=== PATIENT | male | born 1950 | race Caucasian/White ===

== ENCOUNTER 2016-09-13 18:29 | Inpatient (IN) | payer MEDICARE ==
--- NOTE | ~2016-09-13 | DS ---
Discharge Summary [facility] [address] [place]. [address] NAME: IGNACIA LOZOYA : 48 STATUS : DIS IN PAT#: [id number] AGE: 65 ADM/REG DATE : 09/13/16 MR#: [id number] REPORT SERV DATE: 09/17/16 DICTATED BY: SANJEEV RASMUSSEN DATE: 09/16/16 REPORT STATUS : Draft TRANSCRIBED BY: MODL DATE: 09/16/16 ADMISSION DATE: 09/13/2016 DISCHARGE DATE: 09/16/2016 DISCHARGE DIAGNOSES: 1. Major depressive disorder. 2. Non-anion gap metabolic acidosis, chronic. 3. Acute kidney injury, now resolved. 4. Chronic kidney disease stage 3, currently stable. 5. Uncontrolled hypertension, stable with restarting of Tenoretic. 6. Chronic anemia, stable. 7. Right hydronephrosis. 8. History of urothelial cancer status post prostatectomy with cystectomy and creation of a neobladder by Dr. Irvin Flower. 9. Hyperlipidemia. 10.Coronary artery disease with prior coronary artery bypass graft. CONSULTANTS DURING THIS HOSPITALIZATION: 1. Irvin Flower M.D. of Urology. 2. Todd Zapata M.D. of Hematology/Oncology. 3. Rock Barrios M.D. of Psychiatry. INVASIVE PROCEDURES DONE DURING THIS HOSPITALIZATION: None. BRIEF HISTORY OF PRESENT ILLNESS: The patient is a 65-year-old white male, who presented to [facility]'s Emergency Room with complaints of nausea, dehydration, weakness, and failure to thrive, so he was admitted. For detailed history and physical exam, please see note dictated by Dr. Larry Angel on 09/13/2016. HOSPITAL COURSE: After being admitted to the hospital, this patient initially was thought to have acute kidney injury. This patient was given aggressive IV fluids. There was no evidence of any infection. His creatinine returned back to baseline around 1.8. Dr. Zapata saw the patient in consultation and he had thought that he had stage III urothelial cancer that has been in remission due from his surgery, and he continues to do well from that. There were no other issues. All infections were ruled out as well. Dr. Flower saw the patient in consultation because of right hydronephrosis that had been chronic and Dr. Flower did not think that we need to proceed with placing a stent at this time and putting the patient through anesthesia. This patient was more thought to have severe depression based on his symptoms, so Dr. Barrios saw the patient in consultation and placed him on Remeron SolTab and Ativan, and the patient has made more improvements. I had a long discussion with the daughter regarding his depression and treatment options and at this time we have recommended that he be evaluated at [facility] which the daughter will take him there today for evaluation. I have personally called [facility] and made that appointment at 4 o'clock today. I also discussed this with the patient and he understands and agrees. Currently, he remains otherwise stable and is being discharged in stable condition. Discharge Summary [address] [place]. [address] NAME: IGNACIA LOZOYA : 48 STATUS : DIS IN PAT#: [id number] AGE: 65 ADM/REG DATE : 09/13/16 MR#: [id number] REPORT SERV DATE: 09/17/16 DICTATED BY: SANJEEV RASMUSSEN DATE: 09/16/16 REPORT STATUS : Draft TRANSCRIBED BY: CHRISTINE DATE: 09/16/16 DISCHARGE DISPOSITION: Home. DISCHARGE ACTIVITY: As tolerated. DISCHARGE DIET: Low sodium diet. DISCHARGE MEDICATIONS: 1. Tenoretic 100/25 mg half a tablet once daily. 2. Marinol 2.5 mg three times daily. 3. Lexapro 10 mg daily. 4. Probiotics as needed. 5. Potassium 20 mEq twice daily. 6. Remeron SolTab 30 mg once at bedtime. 7. Ativan half a tablet to one tablet every evening p.r.n. for insomnia. DISCHARGE FOLLOWUP: 1. With Dr. Todd Zapata as previously scheduled. 2. With Dr. Flower as previously scheduled. 3. With Dr. Juan Puri as previously scheduled. More than 30 minutes spent planning this patient's discharge, reconciling medications, discussing hospital care, and followup with the patient, discussing care with the daughter over the phone, and documenting this discharge. LAURENT/CHRISTINE Sanjeev Rasmussen M.D. / [id number] CC: Osman Nj M.D. Jeffrey K. Mullins, MD Benjamin R Nadeau, MD
--- NOTE | ~2016-09-13 | CN ---
Consultation Report [facility] [address] [place]. [address] NAME: IGNACIA LOZOYA : 48 STATUS : ADM Jesse PAT#: [id number] AGE: 65 ADM/REG DATE : 09/13/16 MR#: [id number] REPORT SERV DATE: 09/14/16 DICTATED BY: ROCK ROGEL DATE: 09/14/16 REPORT STATUS : Draft TRANSCRIBED BY: MODL DATE: 09/14/16 PSYCHIATRIC CONSULTATION. DATE OF CONSULTATION: 09/14/2016 I have reviewed this patient's current and old medical records. I discussed his history with his daughter. HISTORY OF PRESENT ILLNESS: He was admitted with nausea, vomiting, dehydration, and weakness. He is status post a cystoprostatectomy for bladder cancer. He completed a course of chemo few weeks ago. He is now learning to cope with the dynamics of his neobladder. The nausea and vomiting have persisted since the chemo. He said he does not feel depressed, but said "I would not be surprised if I was on" in view of his overall health status. PAST PSYCHIATRIC HISTORY: About 30 years ago, he went through a similar period of nausea and vomiting after he suffered a fall through a window during a house renovation. At that time, he suffered a severe blood loss from the wound to his arm. At that time, he had an extensive GI workup, but it proved negative. He was then referred to the psychiatry section at [facility], where he was admitted and diagnosed with a "chemical imbalance." He had a good response to the psychotropic medication, which he received there and he stayed on that medication for a couple of years. He has been medication free, without a relapse, for about 25 years. Recently, Dr. Zapata had prescribed one or two different antidepressants, but he could not tolerate them because of the nausea, however, he remains willing to have another trial. 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 He said he used to suffer from pregame anxiety, which took the form of nausea and vomiting. SOCIAL HISTORY: He has been for a number of years. He has two grown daughters. He lives alone in [facility]. 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 FAMILY HISTORY: No psychiatric illness. MENTAL STATUS: He was cooperative in attitude. His overall demeanor was reserved with some reluctance to engage. His mood seemed dysphoric. His affect was appropriate. His thinking was logical. He had no delusions. He had no hallucinations. He was oriented to time, place, and person. He demonstrated good recent and remote memory. DIAGNOSIS: Depressive disorder, not otherwise specified. RECOMMENDATIONS: He agreed to having another trial of Remeron, this time using the soluble tablet form. I will follow up tomorrow. Consultation Report [address] [place]. [address] NAME: IGNACIA LOZOYA : 48 STATUS : ADM Jesse PAT#: [id number] AGE: 65 ADM/REG DATE : 09/13/16 MR#: [id number] REPORT SERV DATE: 09/14/16 DICTATED BY: ROCK ROGEL DATE: 09/14/16 REPORT STATUS : Draft TRANSCRIBED BY: CHRISTINE DATE: 09/14/16 VINCENT/CHRISTINE Rock Rogel M.D. / [id number] CC: MD Juan Cronin II, M.D.
--- NOTE | ~2016-09-13 | HP ---
History And Physical [facility] [address] [facility] [place]. [address] NAME: IGNACIA LORD : 48 STATUS : ADM Jesse PAT#: [id number] AGE: 65 ADM/REG DATE : 09/13/16 MR#: [id number] REPORT SERV DATE: 09/14/16 DICTATED BY: JUANCHO FRAUSTO DATE: 09/14/16 REPORT STATUS : Draft TRANSCRIBED BY: MODAngelica DATE: 09/14/16 DATE OF ADMISSION: 09/13/2016 POINT OF ENTRY: [facility] Emergency Department. PRIMARY ONCOLOGIST: Dr. Zapata. PRIMARY UROLOGIST: Dr. Flower. CHIEF COMPLAINT: Nausea, dehydration, and weakness. HISTORY OF PRESENT ILLNESS: Mr. Lord is a 65-year-old gentleman with a history of bladder cancer, status post recent cystoprostatectomy with ileal conduit and Neobladder creation who recently completed a course of chemotherapy about four weeks ago, who presents to the emergency department today with persistent post chemotherapy-induced nausea, vomiting, weakness, and anorexia. The patient states that he completed his chemotherapy regimen about four weeks ago. He was told by his physicians that after a few weeks, he would start to feel better; however, he states that he has not felt any better despite approximately four weeks passing. He continues to have significant nausea despite use of oral antiemetics. Does endorse some occasional vomiting, but his primary issue is anorexia. Given his anorexia, he has had decreased oral intake with resulting weight loss as well as dehydration. Dr. Zapata reportedly wanted the patient to be admitted to the hospital last for dehydration; however, the patient resisted and wanted to try some oral Marinol to see if that would help with his nausea and appetite stimulation. Unfortunately, this use of Marinol for the past two to three days has not had any improvement, and actually has made him more nauseous. The patient does endorse mild weakness. Daughter is very concerned that the patient is depressed as he seems to have lost interest in his previous hobbies, does not seem to have much energy, has a flat affect, and would like Psychiatry to evaluate the patient during this hospitalization. Initial evaluation in the emergency department notable for a creatinine of 2.10, a potassium of 3.4. Urinalysis does show some pyuria, but again, he does have a neobladder in place. Remainder of labs unremarkable. The patient denies any fevers, night sweats, chills, chest pain, palpitations, shortness of breath, cough, sputum production, abdominal pain, diarrhea, constipation, melena, hematochezia, or hemoptysis. Also denies any dysuria or change in his urinary appearance. REVIEW OF SYSTEMS: Comprehensive review of systems negative unless listed in the history present illness. PREVIOUS MEDICAL HISTORY: 1. Bladder cancer, status post cystoprostatectomy with neobladder creation. 2. Hypertension. History And Physical [address] [address] NAME: IGNACIA LORD : 48 STATUS : ADM Jesse PAT#: [id number] AGE: 65 ADM/REG DATE : 09/13/16 MR#: [id number] REPORT SERV DATE: 09/14/16 DICTATED BY: JUANCHO FRAUSTO DATE: 09/14/16 REPORT STATUS : Draft TRANSCRIBED BY: CHRISTINE DATE: 09/14/16 3. Hyperlipidemia. 4. Coronary artery disease with prior coronary artery bypass grafting. 5. Chronic kidney, stage 3, baseline creatinine highly variable, approximately 1.2 to 1.4. 6. Insomnia. 7. Depression. SURGICAL HISTORY: 1. Cystoprostatectomy with ileal conduit and neobladder creation. 2. Appendectomy. 3. Cholecystectomy. 4. TURBT x2. 5. Multiple prior cystoscopies and stent placement. 6. Back surgery. 7. CABG. ALLERGIES: HYDROCODONE, OXYCODONE, AND SULFA DRUGS. MEDICATIONS: 1. Atenolol with chlorthalidone, 1/2 tablet daily. 2. Marinol 2.5 mg t.i.d. 3. Lexapro 10 mg daily. 4. Align probiotic 1 tab daily. 5. Zofran 8 mg p.o. t.i.d. p.r.n. 6. Potassium chloride 20 mEq b.i.d. SOCIAL HISTORY: Denies any tobacco, alcohol, or illicits. FAMILY MEDICAL HISTORY: Mother, father, and siblings, all with coronary artery disease. LABS AND IMAGIN. White count is 8.9, hemoglobin is 10.2, hematocrit is 32.1, platelets 486. INR 1.2. MCV is 102.2. 2. Sodium is 143, potassium 3.4, chloride 112, carbon dioxide 20, BUN 20, creatinine 2.10, glucose is 129. Calcium is 9.3, magnesium 1.8. Protein 7.8, albumin 3.7, bilirubin is 0.3. ALT 25, AST 19, alkaline phosphatase is 127. 3. Lipase is 94. 4. Lactic acid is 1.3. 5. Troponin less than 0.02. 6. Chest x-ray per my review shows no acute cardiopulmonary abnormality. 7. Urinalysis, specific gravity is 1.009, small leukocyte esterase, 10 reds with 35 white blood cells per high field with rare bacteria. 8. EKG per my review shows normal sinus rhythm with some PACs and PVCs. Otherwise, no acute ischemia or infarction. PHYSICAL EXAMINATION: VITAL SIGNS: Temperature is 98.4 degrees Fahrenheit, pulse is 70, respirations 18, saturating 97% on room air. Blood pressure 186/99. On recheck, blood pressure is now History And Physical [address] [address] NAME: IGNACIA LORD : 48 STATUS : ADM Jesse PAT#: [id number] AGE: 65 ADM/REG DATE : 09/13/16 MR#: [id number] REPORT SERV DATE: 09/14/16 DICTATED BY: JUANCHO FRAUSTO DATE: 09/14/16 REPORT STATUS : Draft TRANSCRIBED BY: CHRISTINE DATE: 09/14/16 137/90, pulse is 67. GENERAL: The patient is awake, alert, in no acute distress, resting comfortably. He is a well-developed and well-nourished male. No family at bedside. HEENT: Atraumatic and normocephalic. Slightly dry mucous membranes. Pupils are equal, round, and reactive to light and accommodation. Extraocular eye movements are intact. No scleral icterus. NECK: No jugular venous distention. No carotid bruits. CARDIAC: Regular rate and rhythm. No murmurs or gallops. Normal S1 and S2. LUNGS: Clear to auscultation bilaterally. No wheezes, rhonchi, or crackles. ABDOMEN: Soft, nontender, and nondistended with good bowel sounds. No rebound, guarding, or rigidity. EXTREMITIES: Warm and perfused. No cyanosis, clubbing, or edema. SKIN: Warm and dry. PSYCHIATRIC: Affect is somewhat flat and distant. NEUROLOGIC: Alert and oriented x3. Cranial nerves II through XII are grossly intact. Speech is normal. Gait not assessed. ASSESSMENT AND PLAN: Mr. Lord is a 65-year-old gentleman who presents with persistent chemotherapy-induced nausea, vomiting, and anorexia, now with dehydration, acute kidney injury, as well as some concern for depression. PROBLEM LIST: 1. Dehydration, acute kidney injury. 2. Chemotherapy-induced nausea, vomiting, and anorexia. 3. Depression. 4. Hypertension. 5. Hypokalemia. 6. Pyuria. PLAN: 1. Acute kidney injury and dehydration. We will hold the patient's chlorthalidone, provide IV fluid hydration, likely secondary to poor oral intake secondary to nausea and anorexia. 2. Chemotherapy-induced nausea, vomiting, and anorexia. We will continue IV Zofran if he states that seems to have helped. We will consult Oncology, Dr. Zapata for assistance in trying to determine what kind of oral regimen may best benefit the patient. 3. Depression. Daughter is very concerned about depression. We will consult Psychiatry per her request. 4. Hypertension, IV hydralazine p.r.n. 5. Hypokalemia, repleting p.r.n. 6. Pyuria. The patient does have some mild pyuria on urinalysis; however, he denies any dysuria or fevers. His white count is normal. I suspect that this is all due to chronic colonization and chronic pyuria given his neobladder. We will follow up urine culture. We will hold off on antibiotics at this time. 7. DVT prophylaxis. Heparin subcu. 8. Code Status: The patient wishes to be full code. History And Physical [address] [place]. [address] NAME: IGNACIA LORD : 48 STATUS : ADM Jesse PAT#: [id number] AGE: 65 ADM/REG DATE : 09/13/16 MR#: [id number] REPORT SERV DATE: 09/14/16 DICTATED BY: JUANCHO FRAUSTO DATE: 09/14/16 REPORT STATUS : Draft TRANSCRIBED BY: CHRISTINE DATE: 09/14/16 ADDY/CHRISTINE Juancho Frausot MD / [id number] CC: Osman Lund MD Jerrold Selzer, M.D. Jeffrey K. Mullins, MD
[~2016-09-13 18:29] MED LIST: ATEN100 PO; K250 PO; KLOR-CON 1010 MEQ PO; KLOR-CON20 MEQ PO; LEVAQUIN750 MG PO; LIPITOR10 PO; LIPITOR20 PO; LISINOPRIL40 MG PO; NORV5 PO; TENORETIC1 TA1 PO; ZOCOR10 PO
[2016-09-13 19:40] LABS: BASOPHILS 0.4 %; BASOPHILS ABSOLUTE 0.04 10/3/uL (0.0-0.16); EOSINOPHILS 0.2 %; EOSINOPHILS ABSOLUTE 0.02 10/3/uL (0.0-0.53); ER CBC TAT 0 Hrs 05 Mins; HEMATOCRIT 32.1 % (40.0-51.0); HEMOGLOBIN 10.2 g/dL (13.6-17.8); IMMATURE GRANULOCYTES 0.2 %; IMMATURE GRANULOCYTES ABSOLUTE 0.02 10/3/uL (0.0-0.11); LYMPHOCYTES 12.7 %; LYMPHOCYTES ABSOLUTE 1.13 10/3/uL (0.67-4.30); MANUAL DIFF NO %; MEAN CORPUS HGB CONC 31.8 g/dL (32.0-36.0); MEAN CORPUSCULAR HEMOGLOB 32.5 pg (26.0-34.0); MEAN CORPUSCULAR VOLUME 102.2 fL (80-100); MEAN PLATELET VOLUME 9.1 fL (9.2-13.0); MONOCYTES 6.8 %; MONOCYTES ABSOLUTE 0.61 10/3/uL (0.21-1.20); NEUTROPHILS 79.7 %; NEUTROPHILS ABSOLUTE 7.09 10/3/uL (2.02-8.40); PLATELET COUNT 486 10/3/uL (150-400); RBC DISTRIBUTION WIDTH 18.1 % (12.0-16.0); RED CELL COUNT 3.14 10/6/uL (4.7-6.1); WHITE BLOOD CELLS 8.9 10/3/uL (4.5-10.5)
[2016-09-13 19:47] LABS: INTERNATIONAL NORMAL RATI 1.2 UNITS (-); PARTIAL THROMBO TIME 27.1 SEC (22.5-37.2); PROTIME (NOT ORD) 14.8 SEC (12.0-14.5)
[2016-09-13 19:57] LABS: BUN (BLOOD UREA NITROGEN) 20 MG/DL (6-23); CHEST PAIN PROFILE TAT 0 Hrs 22 Mins; CHLORIDE, SERUM 112 MMOL/L (96-112); CO2 (CARBON DIOXIDE) 20 MMOL/L (24-34); GFR AFRICAN AMERICAN 37 ML/MIN (>=60); GFR NON AFRICAN AMERICAN 32 ML/MIN (>=60); GLUCOSE, SERUM 129 MG/DL (60-99); POTASSIUM, SERUM 3.4 MMOL/L (3.5-5.3); SODIUM, SERUM 143 MMOL/L (135-148); TROPONIN I <0.02 NG/ML (<0.05)
[2016-09-13 19:58] LABS: CALCIUM, SERUM 9.3 MG/DL (8.5-10.4)
[2016-09-13] MEDS ORDERED: KLOR-CON M2020 MEQ PO (22:36)
[2016-09-13] MEDS ORDERED: TENORETIC1 TA1 PO (22:37)
[2016-09-13] MEDS ORDERED: ALIGN4 MG PO (22:37)
[2016-09-13] MEDS ORDERED: ZOFRAN8 PO (22:37)
[2016-09-13] MEDS ORDERED: MARI2.5 PO (22:37)
[2016-09-13] MEDS ORDERED: LEXAPRO10 PO (22:39)
[2016-09-13 23:31] LABS: ASCORBIC ACID (UR NOT ORDER) NEG (NEG); BILIRUBIN, URINE NEGATIVE (NEG); ER URINALYSIS TAT 0 Hrs 08 Mins; KETONE, URINE NEGATIVE (NEG); LEUKOCYTE ESTERASE(NOT OR SMALL (NEG); NITRITE (URINE) NEG (NEG); WBC (NOT ORDERED) (RFLEX) 35 (0-5)
[2016-09-14 00:34] LABS: SGOT(AST) 19 U/L (5-40); SGPT(ALT) 25 U/L (5-65); TOTAL BILIRUBIN 0.3 MG/DL (0-1.2)
[2016-09-14 00:35] LABS: ALBUMIN 3.7 G/DL (3.5-5.0); ALKALINE PHOSPHATASE 127 U/L (45-117); DIRECT BILIRUBIN < 0.1 MG/DL (0.0-0.4); INDIRECT BILIRUBIN(NOT ORDER) 0.2 MG/DL (0.1-0.9); TOTAL PROTEIN 7.8 G/DL (6.0-8.5)
[2016-09-14 07:23] LABS: BASOPHILS 0.5 %; BASOPHILS ABSOLUTE 0.04 10/3/uL (0.0-0.16); EOSINOPHILS 0.6 %; EOSINOPHILS ABSOLUTE 0.05 10/3/uL (0.0-0.53); HEMOGLOBIN 9.1 g/dL (13.6-17.8); IMMATURE GRANULOCYTES 0.4 %; IMMATURE GRANULOCYTES ABSOLUTE 0.03 10/3/uL (0.0-0.11); LYMPHOCYTES 13.5 %; LYMPHOCYTES ABSOLUTE 1.15 10/3/uL (0.67-4.30); MEAN CORPUS HGB CONC 31.8 g/dL (32.0-36.0); MEAN CORPUSCULAR HEMOGLOB 32.9 pg (26.0-34.0); MEAN CORPUSCULAR VOLUME 103.2 fL (80-100); MEAN PLATELET VOLUME 9.1 fL (9.2-13.0); MONOCYTES 8.6 %; MONOCYTES ABSOLUTE 0.73 10/3/uL (0.21-1.20); NEUTROPHILS 76.4 %; NEUTROPHILS ABSOLUTE 6.53 10/3/uL (2.02-8.40); PLATELET COUNT 428 10/3/uL (150-400); RBC DISTRIBUTION WIDTH 18.2 % (12.0-16.0); RED CELL COUNT 2.77 10/6/uL (4.7-6.1); WHITE BLOOD CELLS 8.5 10/3/uL (4.5-10.5)
[2016-09-14 07:26] LABS: HEMATOCRIT 28.6 % (40.0-51.0); MANUAL DIFF NO %
[2016-09-14 07:35] LABS: ALBUMIN 3.2 G/DL (3.5-5.0); BUN (BLOOD UREA NITROGEN) 19 MG/DL (6-23); CALCIUM, SERUM 8.8 MG/DL (8.5-10.4); CHLORIDE, SERUM 116 MMOL/L (96-112); CO2 (CARBON DIOXIDE) 17 MMOL/L (24-34); CREATININE 1.82 MG/DL (0.70-1.30); GFR AFRICAN AMERICAN 44 ML/MIN (>=60); GFR NON AFRICAN AMERICAN 38 ML/MIN (>=60); GLUCOSE, SERUM 113 MG/DL (60-99); PHOSPHORUS, SERUM 2.7 MG/DL (2.5-4.5); POTASSIUM, SERUM 3.5 MMOL/L (3.5-5.3); SODIUM, SERUM 143 MMOL/L (135-148)
[2016-09-14 10:23] LABS: CREATININE, URINE 90.2 MG/DL
[2016-09-15 06:14] LABS: BASOPHILS 0.5 %; BASOPHILS ABSOLUTE 0.03 10/3/uL (0.0-0.16); EOSINOPHILS 0.6 %; EOSINOPHILS ABSOLUTE 0.04 10/3/uL (0.0-0.53); HEMATOCRIT 27.3 % (40.0-51.0); HEMOGLOBIN 8.6 g/dL (13.6-17.8); IMMATURE GRANULOCYTES 0.3 %; IMMATURE GRANULOCYTES ABSOLUTE 0.02 10/3/uL (0.0-0.11); LYMPHOCYTES 12.7 %; LYMPHOCYTES ABSOLUTE 0.84 10/3/uL (0.67-4.30); MEAN CORPUS HGB CONC 31.5 g/dL (32.0-36.0); MEAN CORPUSCULAR HEMOGLOB 32.7 pg (26.0-34.0); MEAN CORPUSCULAR VOLUME 103.8 fL (80-100); MONOCYTES 11.2 %; MONOCYTES ABSOLUTE 0.74 10/3/uL (0.21-1.20); NEUTROPHILS 74.7 %; NEUTROPHILS ABSOLUTE 4.95 10/3/uL (2.02-8.40); PLATELET COUNT 375 10/3/uL (150-400); RBC DISTRIBUTION WIDTH 18.1 % (12.0-16.0); RED CELL COUNT 2.63 10/6/uL (4.7-6.1); WHITE BLOOD CELLS 6.6 10/3/uL (4.5-10.5)
[2016-09-15 06:19] LABS: MANUAL DIFF NO %
[2016-09-15 06:27] LABS: ALBUMIN 2.8 G/DL (3.5-5.0); BUN (BLOOD UREA NITROGEN) 17 MG/DL (6-23); CALCIUM, SERUM 8.2 MG/DL (8.5-10.4); CHLORIDE, SERUM 118 MMOL/L (96-112); CO2 (CARBON DIOXIDE) 20 MMOL/L (24-34); CREATININE 1.82 MG/DL (0.70-1.30); GFR AFRICAN AMERICAN 44 ML/MIN (>=60); GFR NON AFRICAN AMERICAN 38 ML/MIN (>=60); GLUCOSE, SERUM 93 MG/DL (60-99); PHOSPHORUS, SERUM 2.3 MG/DL (2.5-4.5); POTASSIUM, SERUM 3.4 MMOL/L (3.5-5.3); SODIUM, SERUM 145 MMOL/L (135-148)
[2016-09-16 06:00] LABS: ALBUMIN 2.7 G/DL (3.5-5.0); BUN (BLOOD UREA NITROGEN) 19 MG/DL (6-23); CALCIUM, SERUM 8.8 MG/DL (8.5-10.4); CHLORIDE, SERUM 115 MMOL/L (96-112); CO2 (CARBON DIOXIDE) 19 MMOL/L (24-34); CREATININE 1.86 MG/DL (0.70-1.30); GFR AFRICAN AMERICAN 43 ML/MIN (>=60); GFR NON AFRICAN AMERICAN 37 ML/MIN (>=60); GLUCOSE, SERUM 88 MG/DL (60-99); PHOSPHORUS, SERUM 2.2 MG/DL (2.5-4.5); POTASSIUM, SERUM 3.7 MMOL/L (3.5-5.3); SODIUM, SERUM 144 MMOL/L (135-148)
[2016-09-16 06:02] LABS: BASOPHILS 0.7 %; BASOPHILS ABSOLUTE 0.04 10/3/uL (0.0-0.16); EOSINOPHILS 1.7 %; HEMATOCRIT 26.8 % (40.0-51.0); HEMOGLOBIN 8.4 g/dL (13.6-17.8); IMMATURE GRANULOCYTES 0.5 %; IMMATURE GRANULOCYTES ABSOLUTE 0.03 10/3/uL (0.0-0.11); LYMPHOCYTES 20.2 %; LYMPHOCYTES ABSOLUTE 1.18 10/3/uL (0.67-4.30); MANUAL DIFF NO %; MEAN CORPUS HGB CONC 31.3 g/dL (32.0-36.0); MEAN CORPUSCULAR HEMOGLOB 32.3 pg (26.0-34.0); MEAN CORPUSCULAR VOLUME 103.1 fL (80-100); MEAN PLATELET VOLUME 9.3 fL (9.2-13.0); MONOCYTES 10.4 %; MONOCYTES ABSOLUTE 0.61 10/3/uL (0.21-1.20); NEUTROPHILS 66.5 %; NEUTROPHILS ABSOLUTE 3.89 10/3/uL (2.02-8.40); PLATELET COUNT 350 10/3/uL (150-400); RBC DISTRIBUTION WIDTH 17.9 % (12.0-16.0); WHITE BLOOD CELLS 5.9 10/3/uL (4.5-10.5)
[2016-09-16] MEDS ORDERED: REMERON30 MG PO (11:36)
[2016-09-16] MEDS ORDERED: ATV.5 PO (11:37)
== END 2016-09-16 15:22 | disposition home or self-care (01) | DRG 640 ==
LOC: ER 18:29 → 4EA 23:59
PROVIDERS: Emergency Medicine; Internal Medicine; Nurse Practitioner Acute Care; Nurse Practitioner Family
DX: E86.0 Dehydration (principal); E43 Unspecified severe protein-calorie malnutrition; N17.9 Acute kidney failure, unspecified; N13.30 Unspecified hydronephrosis; F32.9 Major depressive disorder, single episode, unspecified; E87.2 Acidosis; I12.9 Hypertensive chronic kidney disease with stage 1 through stage 4 chronic kidney disease, or unspecified chronic kidney disease; N18.3 Chronic kidney disease, stage 3 (moderate); D64.9 Anemia, unspecified; E78.5 Hyperlipidemia, unspecified; I25.10 Atherosclerotic heart disease of native coronary artery without angina pectoris; Z95.1 Presence of aortocoronary bypass graft
CPT/HCPCS: 71020; 76775; 80048; 80069; 80076; 81001; 82570; 83605; 83690; 83735; 83935; 84300; 84484; 85025; 85610; 85730; 86677; 87086; 93005; 96374; 96375; 99285; A9270-GY; J0360; J2405